=== PATIENT | male | born 1980 | race African-American/Black ===

== ENCOUNTER 2017-05-20 12:11 | Emergency (ER) ==
[2017-05-20 12:19] VITALS: TEMP 97.4; BMI 38.6
--- NOTE | 2017-05-20 12:34 | ED.PDOC ---
General ED Provider: Dr. ÁNGEL BEAVERS Chief Complaint: Non-specific Complaint Stated Complaint: Pateint is a 36 year old male who comes to the ER with recurrent symtoms of bells palsy. Has had it 5 times the past. States feels that the lips and right side of the face is numb. Time Seen by Physician: 12:30 Mode of Arrival: Walk-In Information Source: Patient Exam Limitations: No limitations Primary Care Provider: CHINMAY WEBSTER Nursing and Triage Documentation Reviewed and Agree: Yes Review of Systems - Review Of Systems Constitutional: Reports: No symptoms Eyes: Reports: No symptoms Ears, Nose, Mouth, Throat: Reports: No symptoms Respiratory: Reports: No symptoms Cardiac: Reports: No symptoms GI: Reports: No symptoms : Reports: No symptoms Musculoskeletal: Reports: No symptoms Skin: Reports: No symptoms Neurological: Reports: No symptoms Endocrine: Reports: No symptoms Hematologic/Lymphatic: Reports: No symptoms All Other Systems: Reviewed and Negative Past Medical History - Past Medical History Previously Healthy: Yes Endocrine: Reports: None Cardiovascular: Reports: None Respiratory: Reports: None Hematological: Reports: None Gastrointestinal: Reports: None Genitourinary: Reports: None Neuro/Psych: Reports: None Musculoskeletal: Reports: None Cancer: Reports: None Other Pertinent Past Medical History: [place] - Surgical History General Surgical History: Reports: Unknown - Family History Family History: Reports: Unknown - Social History Smoking Status: Former smoker Hx Substance Use: No Alcohol Screening: Occasionally Physical Exam - Physical Exam Appearance: Ill-appearing, Obese Ill-appearing: Mild Eyes: ZEENAT, EOMI, Conjunctiva clear ENT: Ears normal, Nose normal, Oropharynx normal Neck: Supple Respiratory: Airway patent, Breath sounds clear, Breath sounds equal, Respirations nonlabored Cardiovascular: RRR, Pulses normal, No rub, No murmur Skin: Warm Neurological: Motor intact, Alert, Oriented, CN Palsy (Mild Right facial palsy ) Psychiatric: Anxious Critical Care Note - Critical Care Note Total Time (mins): 0 Course - Course Orders, Labs, Meds: Orders Category Date Time Status Clonidine HCl [Catapres] MEDS 05/20/17 12:51 Discontinued 0.1 mg PO ONCE STA CT HEAD W/O CONTRAST Stat RADS 05/20/17 12:59 Completed Medications Discontinued Medications Generic Name Dose Route Start Last Admin Trade Name Freq PRN Reason Stop Dose Admin Clonidine 0.1 mg 05/20/17 12:51 05/20/17 12:55 Catapres PO 05/20/17 12:52 0.1 mg ONCE STA Administration Vital Signs: Temp Pulse Resp BP Pulse Ox 05/20/17 13:21 170/98 H 05/20/17 12:45 168/110 H 05/20/17 12:12 97.4 F L 71 18 201/121 H 96 Departure - Departure Time of Disposition: 12:43 Disposition: HOME SELF-CARE Discharge Problem: Villatoro's palsy, Elevated blood pressure reading Instructions: Villatoro Palsy (ED) Condition: Fair Pt referred to PMD for follow-up: Yes Additional Instructions: Take Medications as prescribed Follow up with your PCP next week Return if worse. Prescriptions: Acyclovir 800 mg PO 5XD #50 tablet Hydrochlorothiazide 12.5 mg PO DAILY #30 tablet Pregabalin [Lyrica] 50 mg PO TID #30 capsule Allergies/Adverse Reactions: Allergies amoxicillin Adverse Reaction (Verified 05/20/17 12:19) Home Medications: Ambulatory Orders Acyclovir 800 mg PO 5XD #50 tablet 05/20/17 Hydrochlorothiazide 12.5 mg PO DAILY #30 tablet 05/20/17 Pregabalin [Lyrica] 50 mg PO TID #30 capsule 05/20/17 Disposition Discussed With: Patient
[2017-05-20] MEDS ORDERED: CATAPRES PO STA (12:51)
[2017-05-20 13:22] VITALS: BP 170/98
--- NOTE | 2017-05-20 13:22 | CT ---
EXAM: CT scan brain without contrast HISTORY: Right facial numbness COMPARISON: CT scan brain 06/24/2016 FINDINGS: Contiguous axial images were obtained from the skull base to the convexities without contr ast utilizing 5-mm collimation.. Coronal reconstructions were imaged and reviewed.. The ventricles and CSF spaces are within normal limits. There are no acute intracranial findings. The visualized p aranasal sinuses and mastoid air cells are clear. IMPRESSION: No acute intracranial findings.
== END 2017-05-20 13:29 | disposition home or self-care (01) ==
LOC: ED 12:11
DX: G51.0 Bell's palsy (principal); R03.0 Elevated blood-pressure reading, without diagnosis of hypertension
CPT/HCPCS: 99283